=== PATIENT | female | born 1995 | race African-American/Black ===

== ENCOUNTER 2016-06-02 17:46 | Outpatient (CLI) | payer OTHER ==
[~2016-06-02] VITALS: Ht 157.5 cm; Wt 73.2 kg
[2016-06-02 17:59] VITALS: BP 121/86
[2016-06-02] MEDS ORDERED: PRENTAB9 PO (18:27)
[2016-06-02 18:37] LABS: MEAN CORPUSCULAR HEMOGLOBIN 32.3 pg (27.0-33.0); MEAN CORPUSCULAR HGB CONC 35.2 g/dl (32.0-36.5); MEAN CORPUSCULAR VOLUME 91.7 fl (80.0-96.0); RED CELL DISTRIBUTION WIDTH 12.7 % (11.5-14.5); WHITE BLOOD COUNT 6.5 K/mm3 (4.0-10.0)
[2016-06-02 18:58] LABS: ALBUMIN 3.1 GM/DL (3.2-5.2); ALBUMIN/GLOBULIN RATIO 0.89 (1.00-1.93); ALKALINE PHOSPHATASE 55 U/L (45-117); ALT/SGPT 12 U/L (12-78); ANION GAP 9 MEQ/L (8-16); AST/SGOT 12 U/L (15-37); BILIRUBIN,TOTAL 0.3 MG/DL (0.2-1.0); BLOOD UREA NITROGEN 5 MG/DL (7-18); CALCIUM LEVEL 8.5 MG/DL (8.5-10.1); CARBON DIOXIDE LEVEL 25 MEQ/L (21-32); CHLORIDE LEVEL 106 MEQ/L (98-107); GLUCOSE, FASTING 77 MG/DL (70-105); POTASSIUM SERUM 3.4 MEQ/L (3.5-5.1); SODIUM LEVEL 140 MEQ/L (136-145); TOTAL PROTEIN 6.6 GM/DL (6.4-8.2)
--- NOTE | 2016-06-02 20:20 | REPUSA ---
CLINICAL HISTORY: Sudden onset of left sided abdominal pain. TECHNIQUE: Realtime sonographic images were obtained in multiple projections. COMMENTS: uterus. FHR: 144 bpm. Placenta appears within normal limits - no abruptions. Left OV: 7.9 x 4.6 x 4.4 cm. Complex cyst in left ovary. Right OV: 6.5 X 4.3 X 6.5 cm. Right ovary appears within normal limits. Good blood flow seen. IMPRESSION: Single live uterine . Left ovarian cyst. Thank you for your kind referral of this patient. We appreciate the opportunity to participate in th is patient's care.
[2016-06-02 20:28] VITALS: BP 116/88
[2016-06-02] MEDS ORDERED: MORPHINE 2 MG/ML 1ML SYRINGE IV PRN ×3 (21:00→21:15)
[2016-06-02] MEDS: LR 1,000 ML IV SCH (21:30)
--- NOTE | 2016-06-02 23:00 | IPNPDOC ---
Text Note Date of Service The patient was seen on 06/02/16 at 22:53. NOTE Antepartum Observation H&P 20 y/o at 24+1 with sudden onset severe LLQ pain 10/10 that lasted for about an hour prior to coming to the hospital. No VB, no abnl d/c or LOF. No vomiting prior to coming to the hospital but since arrival over the last several hours has vomited bilious material X2. No dysuria or back pain or urinary complaints. No dyschezia or bowel complaints. Feeling the baby move. OB: Uncomplicated OB Hx thus far other than initial chlamydia (treated and neg LUPE ) PMH: denies PSH: left hernia repair age 12 NKDA Meds: PNV SH: [employer] ([employer]), no E/T/D, FOB is not Rads: 13DEC US shows nl anatomy and a complex septated cyst on the left measuring 6.7 x 5.2 x 5.9 cm Labs: B pos, neg AB HIV neg Rub Imm RPR NR Urine cx neg Varicella unkonwn (wrong test ordered at [facility]) HBSAG unknown (wrong test ordered at [facility]) NOB GC neg NOB CT pos with neg LUPE VSSAF, nl P and BP's and T's CTAB RRR Abd diffusely tender but not rigid or distended more than a 24 week is already distended. No palpable masses other than the gravid uterus Bedside US done upon initial eval showed an active fetus with a nl FHR and subjectively nl fluid levels but a 4 x 6 cm complex left ov cyst noted (I did not have her chart at the time of this bedside US and the pt had not mentioned the presence of this cyst). Formal inpt bedside US done: CLINICAL HISTORY: Sudden onset of left sided abdominal pain. TECHNIQUE: Realtime sonographic images were obtained in multiple projections. COMMENTS: uterus. FHR: 144 bpm. Placenta appears within normal limits - no abruptions. Left OV: 7.9 x 4.6 x 4.4 cm. Complex cyst in left ovary. Right OV: 6.5 X 4.3 X 6.5 cm. Right ovary appears within normal limits. Good blood flow seen. IMPRESSION: Single live uterine . Left ovarian cyst. Thank you for your kind referral of this patient. We appreciate the opportunity to participate in this patient's care. a/p: 24 wk uncomplicated with sudden onset and now intermittent pain in the LLQ/left abd. Now known left complex ovarian cyst, likely source of her pain is intermittent torsion. I am reluctant to go straight to the OR due to the risk of PTD, etc with surgery and being 24 wks , also her pain waxes /wanes. Hopefully, we can observe her and Tx her pain with IV Morphine prn and she will improve and we can continue her with strict return precautions and a plan for removal at time of delivery if has a or within 1-2 months of delivery if remains the same size and does not bother her further. However, if pain becomes severe/unrelenting or never improves over a reasonable hospital course, may need to have the mass removed surgically. This all d/w the pt and her treating RN. NPO until her clinical situation becomes clearer. Regardless, will need q 4-6 week US's to follow the size of the mass. Will rpt her CBC in the AM and also get a HBSAG and Varicella IGG to complete her labs. Sessions VS,Kaleigh, I+O VSKaleigh I+O Laboratory Tests 06/02/16 18:30 Calcium Level 8.5, Aspartate Amino Transf (AST/SGOT) 12 L, Alanine Aminotransferase (ALT/SGPT) 12, Alkaline Phosphatase 55, Total Bilirubin 0.3, Total Protein 6.6, Albumin 3.1 L, Red Blood Count 3.84 L, Mean Corpuscular Volume 91.7, Mean Corpuscular Hemoglobin 32.3, Mean Corpuscular Hemoglobin Concent 35.2, Red Cell Distribution Width 12.7 Vital Signs Date Time Temp Pulse Resp B/P Pulse Ox O2 Delivery O2 Flow Rate FiO2 06/02/16 21:49 97.8 79 20 116/88 Room Air SESSIONS,RYLAND Rudolph MD Jun 02, 2016 23:00
[2016-06-03 00:22] VITALS: BP 100/57
[2016-06-03 04:05] VITALS: BP 105/58
[2016-06-03 05:15] LABS: MEAN CORPUSCULAR HEMOGLOBIN 32.2 pg (27.0-33.0); MEAN CORPUSCULAR HGB CONC 35.2 g/dl (32.0-36.5); MEAN CORPUSCULAR VOLUME 91.6 fl (80.0-96.0); RED CELL DISTRIBUTION WIDTH 13.6 % (11.5-14.5); WHITE BLOOD COUNT 9.8 K/mm3 (4.0-10.0)
[2016-06-03 07:12] VITALS: BP 109/60
--- NOTE | 2016-06-03 07:15 | IPNPDOC ---
Text Note Date of Service The patient was seen on 06/03/16 at 07:09. NOTE 24+2 weeks gestation with LLQ pain, known left complex ovarian cyst States feeling somewhat better but back tender paper machine all over abd worst on lower left and needs to sit up slightly in bed to be able to sleep. No further vomiting. Has received IV morphine several times throughout the night. Vitals stable CBC done 0500 with HCT 32.4 from 35.2 (likely dilutional), PLT 134 from 135, WBC 9.8 from 6.5 CTAB RRR Abd with nontender uterine fundus Tender left side to palp but abd not rigid, no guarding. a/p: Slight improvement, not a surgical abdomen at this point but if no significant improvement may need surgical intervention this afternoon or tomorrow. Maintain NPO status. SBAR to Dr Zamora. Sessions MD MASTERS,Kaleigh, I+O VSKaleigh I+O Laboratory Tests 06/02/16 18:30 Calcium Level 8.5, Aspartate Amino Transf (AST/SGOT) 12 L, Alanine Aminotransferase (ALT/SGPT) 12, Alkaline Phosphatase 55, Total Bilirubin 0.3, Total Protein 6.6, Albumin 3.1 L, Red Blood Count 3.84 L, Mean Corpuscular Volume 91.7, Mean Corpuscular Hemoglobin 32.3, Mean Corpuscular Hemoglobin Concent 35.2, Red Cell Distribution Width 12.7 06/03/16 04:37 Red Blood Count 3.54 L, Mean Corpuscular Volume 91.6, Mean Corpuscular Hemoglobin 32.2, Mean Corpuscular Hemoglobin Concent 35.2, Red Cell Distribution Width 13.6 Vital Signs Date Time Temp Pulse Resp B/P Pulse Ox O2 Delivery O2 Flow Rate FiO2 06/03/16 05:10 97.2 18 06/03/16 04:05 81 105/58 06/02/16 21:49 Room Air I&O- Last 24 Hours up to 6 AM 06/03/16 06:00 Intake Total 650 ml Output Total 550 ml Balance 100 ml SESSIONS,RYLAND Rudolph MD Jun 03, 2016 07:15
[2016-06-03] MEDS: LR 1,000 ML IV SCH (08:15)
[2016-06-03 13:15] VITALS: BP 108/52
== END 2016-06-03 16:25 | disposition home or self-care (01) ==
LOC: M LDO 17:46
PROVIDERS: ATTEND Obstetrics & Gynecology
DX: R10.32 Left lower quadrant pain (principal); N83.202 Unspecified ovarian cyst, left side; O62.0 Primary inadequate contractions; O47.02 False labor before 37 completed weeks of gestation, second trimester; Z3A.24 24 weeks gestation of pregnancy; O34.82 Maternal care for other abnormalities of pelvic organs, second trimester; O21.9 Vomiting of pregnancy, unspecified

== ENCOUNTER 2016-09-23 20:57 | Inpatient (IN) | payer OTHER ==
[~2016-09-23 20:57] MED LIST: PRENTAB9 PO
[2016-09-23 21:05] VITALS: BP 123/80
[2016-09-24] VITALS (12 sets, daily range): BP systolic 97–116; BP diastolic 55–68
[2016-09-24] MEDS ORDERED: BUTORPHANOL 2 MG/ML INJ (J0595) IV ONE (02:15)
[2016-09-24] MEDS ORDERED: OXYTOCIN 30 UNITS IN 0.9% NaCl 500ML IV BAG (J2590) As Ordered ONE (02:20)
[2016-09-24] MEDS ORDERED: BUTORPHANOL 2 MG/ML INJ (J0595) As Ordered ONE (02:21)
[2016-09-24] MEDS ORDERED: OXYTOCIN DRIP 30 UNITS in APPROPRIATE DILUENT 1 EA IV SCH (02:26)
[2016-09-24 02:51] LABS: MEAN CORPUSCULAR HEMOGLOBIN 32.2 pg (27.0-33.0); MEAN CORPUSCULAR HGB CONC 34.8 g/dl (32.0-36.5); MEAN CORPUSCULAR VOLUME 92.5 fl (80.0-96.0); RED CELL DISTRIBUTION WIDTH 12.8 % (11.5-14.5); WHITE BLOOD COUNT 8.1 K/mm3 (4.0-10.0)
[2016-09-24] MEDS ORDERED: RHOGAM 300 MCG (1500 IU) INJ (J2790) IM SCH (03:15)
[2016-09-24] MEDS ORDERED: PROMETHAZINE 25 MG TAB PO PRN (03:15)
[2016-09-24] MEDS ORDERED: LIDOCAINE 1% MDV INJ 50 ML VIAL INFIL ONE (03:15)
[2016-09-24] MEDS ORDERED: MEASLES,MUMPS,RUBELLA VACCINE INJ (MMR-II) (90707) SC SCH (03:15)
[2016-09-24] MEDS ORDERED: ONDANSETRON 4MG/2ML VIAL (J2405) IV PRN (03:15)
[2016-09-24] MEDS ORDERED: DIBUCAINE 1% OINTMENT 30GM TOP PRN (03:15)
[2016-09-24] MEDS ORDERED: METHYLERGONOVINE MALEATE 0.2 MG/ML VIAL (J2210) IM PRN (03:15)
[2016-09-24] MEDS: PRENATAL VITAMIN TAB PO SCH (08:09)
[2016-09-24] MEDS: DOCUSATE SODIUM 100 MG CAP PO SCH ×2 (08:09→20:03)
[2016-09-24] MEDS: IBUPROFEN 800 MG TAB PO PRN ×2 (08:11→20:03)
[2016-09-25] MEDS: IBUPROFEN 800 MG TAB PO PRN ×2 (05:17→19:27)
[2016-09-25 05:51] VITALS: BP 108/59
--- NOTE | 2016-09-25 07:01 | IPNPDOC ---
Text Note Date of Service The patient was seen on 09/25/16. NOTE Mami is a 20yo [id number] doing well on PPD 1 s/p in ambulance complicated by 3mll. She is bottle feeding without issue. Lochia normal, spontaneously voiding and ambulating without difficulty. Tolerating regular diet. Denies f/c/n/v/SOB/CP/ROACH/abdominal pain. Vitals wnl, afebrile Exam: General: WDWN, NAD, resting comfortably Cardiac: S1S2 present, no murmur Lungs: CTAB without wheeze/crackles Abdomen: soft, NTTP, fundus firm u-2cm Extremities: no tenderness of calves bilaterally Assessment: Mami is a 20yo [id number] doing well on PPD 1 in ambulance complicated by 3mll. Vitals wnl, benign exam. No e/o infection, hemodynamically stable. Plan: -routine post- care -tylenol/motrin prn pain -good bowel regimen with colace -encourage ambulation -undecided on contraception -will have 6wk PP follow-up visit Dr. Megan Potter MD [place] TORSTEN VS,Kaleigh, I+O VS, [place], I+O Vital Signs Date Time Temp Pulse Resp B/P (MAP) Pulse Ox O2 Delivery O2 Flow Rate FiO2 09/25/16 05:51 98.2 87 18 108/59 (75) 09/24/16 05:42 99 Room Air I&O- Last 24 Hours up to 6 AM 09/25/16 06:00 Intake Total 480 ml Balance 480 ml MEGAN POTTER MD September 25, 2016 07:01
[2016-09-25] MEDS: PRENATAL VITAMIN TAB PO SCH (07:57)
[2016-09-25] MEDS: DOCUSATE SODIUM 100 MG CAP PO SCH ×2 (07:57→19:27)
[2016-09-25] MEDS: ACETAMINOPHEN 500 MG TAB PO PRN (17:35)
[2016-09-25 18:00] VITALS: BP 105/59
[2016-09-26] MEDS: ACETAMINOPHEN 500 MG TAB PO PRN (06:18)
[2016-09-26 06:27] VITALS: BP 113/62
--- NOTE | 2016-09-26 06:48 | DS.PDOC ---
Discharge Summary General Date of Admission September 24, 2016 at 02:00 Date of Discharge [id number] Discharge Summary PROCEDURES PERFORMED DURING STAY: spontaneous vaginal delivery ADMITTING DIAGNOSES: Labor DISCHARGE DIAGNOSES: 1. Healthy male HOSPITAL COURSE: Admitted in active labor. Underwent an uncomplicated delivery. See delivery note. DISCHARGE MEDICATIONS: Motrin, Colace, Tylenol, Lanolin Physical exam: see note from this morning LABORATORY DATA: Please see below. ACTIVITY: as tolerated. Nothing in vagina for 6 weeks. No bathing for 2 weeks , shower only. DIET: regular DISPOSITION:stable, discharge to boarding status (UV lights for baby) TIME SPENT ON DISCHARGE: Greater than 15 minutes. Sessions Vital Signs/I&Os Vital Signs Date Time Temp Pulse Resp B/P (MAP) Pulse Ox O2 Delivery O2 Flow Rate FiO2 09/26/16 06:27 98.0 77 18 113/62 (79) 09/24/16 05:42 99 Room Air Discharge Medications Scheduled Multivitamins/ ( 27-0.8 mg) 1 Tab Tab, 1 TAB PO DAILY, (Reported ) Allergies Coded Allergies: No Known Allergies (Unverified , 06/02/16) SESSIONS,RYLAND Rudolph MD September 26, 2016 06:48
--- NOTE | 2016-09-26 06:55 | IPNPDOC ---
Text Note Date of Service The patient was seen on 09/26/16. NOTE PPD2 prog note States feeling well, no complaints. No heavy VB. Pain controlled. Voiding, ambulatory. Bonding well and bottle feeding. Baby is geting UV light therapy. VSSAF CTAB RRR Ut at U-2, firm Ext no CCE a/p: Doing well, d/c to boarding status. Sessions VS,Kaleigh, I+O VSKaleigh I+O Vital Signs Date Time Temp Pulse Resp B/P (MAP) Pulse Ox O2 Delivery O2 Flow Rate FiO2 09/26/16 06:27 98.0 77 18 113/62 (79) 09/24/16 05:42 99 Room Air SESSIONS,RYLAND Rudolph MD September 26, 2016 06:55
[2016-09-26] MEDS: PRENATAL VITAMIN TAB PO SCH (08:17)
[2016-09-26] MEDS: DOCUSATE SODIUM 100 MG CAP PO SCH (08:17)
[2016-09-26] MEDS ORDERED: COLA100C3 PO (09:51)
[2016-09-26] MEDS ORDERED: ACET50TA PO (09:51)
[2016-09-26] MEDS ORDERED: IBUP-1114 PO (09:52)
--- NOTE | 2016-09-26 17:22 | IPN ---
DATE: 09/26/2016 This patient and requested circumcision of their male . After discussing the risks and benefits of circumcision, the medical and nonmedical indications, the penile block and aftercare, both expressed understanding of the same, signed and witnessed the consent form. We await the clearance by the core inserter. Copy To: Anjelica ROCHA
== END 2016-09-26 10:30 | disposition home or self-care (01) | DRG 769 ==
LOC: M LDO 20:57 → M LDI 09-24 02:00 → M OBS 09-24 05:42
PROVIDERS: ADMIT Obstetrics & Gynecology; ATTEND Obstetrics & Gynecology
PROC: 0DQR0ZZ Repair Anal Sphincter, Open Approach (ICD-10-PCS; principal; 2016-09-24)
DX: O70.20 Third degree perineal laceration during delivery, unspecified (principal); Z39.0 Encounter for care and examination of mother immediately after delivery; Z3A.40 40 weeks gestation of pregnancy; O48.0 Post-term pregnancy

== ENCOUNTER 2016-09-23 20:59 | Outpatient (CLI) | payer OTHER | END 2016-09-23 23:12 | disposition home or self-care (01) | LOC: M LDO 20:59 | PROVIDERS: ATTEND Obstetrics & Gynecology | DX: O62.0 Primary inadequate contractions (principal); Z3A.40 40 weeks gestation of pregnancy; O99.89 Other specified diseases and conditions complicating pregnancy, childbirth and the puerperium; R60.9 Edema, unspecified ==

== ENCOUNTER 2016-12-31 15:15 | Emergency (ER) | payer OTHER ==
[~2016-12-31] VITALS: Ht 157.5 cm; Wt 71.7 kg
[~2016-12-31 15:15] MED LIST changes: +ACET50TA PO; +COLA100C5 PO; +IBUP-1114 PO
[2016-12-31] MEDS ORDERED: KETOROLAC 30 MG/ML VIAL (J1885) IM ONE (17:15)
[2016-12-31 18:22] VITALS: BP 135/84
[2016-12-31] MEDS ORDERED: ULTR50TA8 PO (18:22)
--- NOTE | 2016-12-31 19:24 | REP ---
PELVIC ULTRASOUND: Real-time sonographic evaluation of the pelvis was performed utilizing transabdominal. The bladder measures 4.8 x 2.9 x 4.7 cm. The uterus measures 9.5 x 4.4 x 5.3 cm. Endometrial thickness is 8 mm. There is no endometrial fluid collection. Right ovary measuring 2.6 x 2.0 x 1.5 cm and the left ovary measuring 10.5 x 5.1 x 9.9 cm. A simple cyst of the left ovary measures 4.7 x 3.6 x 4.6 cm. A complex cyst of the left ovary measures 5.0 x 5.3 x 5.8 cm. There is no evidence of torsion with blood flow seen in each ovary with Duplex Doppler evaluation, RI right ovary is 0.49 and left ovary 0.54. No free fluid is seen. IMPRESSION: Two dominant left ovarian cysts with the largest cyst complex and measuring 5.8 cm in diameter. No torsion or free fluid. Signed by Jacobo Dixon MD 12/31/2016 08:16 P
== END 2016-12-31 18:28 | disposition home or self-care (01) ==
LOC: M ED 15:15
DX: N83.02 Follicular cyst of left ovary (principal)
CPT/HCPCS: 76856; 81001; 81025; 93976; 96372; 99283; J1885

== ENCOUNTER 2017-01-24 04:52 | Emergency (ER) | payer OTHER ==
[~2017-01-24] VITALS: Ht 157.5 cm; Wt 72.0 kg
[~2017-01-24 04:52] MED LIST changes: +ULTR50TA8 PO
--- NOTE | 2017-01-24 06:20 | REPUSA ---
HISTORY: Trauma. COMPARISON: Not provided. TECHNIQUE: Multiple thin section helically-acquired axially-displayed and helically acquired coronall y displayed computed tomographic images of the face are obtained from the mandible through the fronta l sinuses, with images obtained at soft tissue and bone window. 2D reformatted images were performed. FINDINGS: Acute displaced fractures of the nasal bones. Overlying soft tissue edema and swelling. Fracture of the nasal septum. Normal orbits. Normal, clear paranasal sinuses. Normal oral and nasal cavities. Normal infratemporal fossa and deep parapharyngeal spaces with normal muscles of mastication. Normal parotid and submandibular glands. IMPRESSION: Fractures of the nasal bones and nasal septum. Overlying soft tissue edema. Thank you for your kind referral of this patient
--- NOTE | 2017-01-24 06:20 | REPUSA ---
CLINICAL HISTORY: Neck pain. TECHNIQUE: Multiple axial images were obtained through the cervical spine. Images were also reconstru cted in coronal and sagittal planes. The study was performed without IV contrast. COMMENTS: There is no fracture or spondylolisthesis visualized. The paraspinal soft tissues are unremarkable. T here are no lytic or blastic lesions. Straightening of cervical lordosis is seen, suggesting muscular spasm. There is evidence of minimal m ultilevel disk disease, demonstrated by minimal osteophytosis and endplate sclerosis. No significant disk herniation is noted at any level. Canal and foramina remain patent. IMPRESSION: 1. No fracture or spondylolisthesis. 2. Straightening of cervical lordosis is seen, suggesting muscular spasm. 3. Minimal multilevel spondylosis. Thank you for your kind referral of this patient.
[2017-01-24] MEDS ORDERED: OXYMETAZOLINE NASAL SPRAY (AFRIN) ONE (06:45)
[2017-01-24] MEDS ORDERED: NORCO 5/325MG TABLET (BULK FOR ED) PO ONE (06:45)
[2017-01-24 06:49] VITALS: BP 119/79
== END 2017-01-24 06:50 | disposition home or self-care (01) ==
LOC: M ED 04:52
DX: S02.2XXA Fracture of nasal bones, initial encounter for closed fracture (principal); V43.62XA Car passenger injured in collision with other type car in traffic accident, initial encounter; Y92.9 Unspecified place or not applicable; Y93.9 Activity, unspecified; Y99.9 Unspecified external cause status; M47.899 Other spondylosis, site unspecified

== ENCOUNTER 2017-02-14 09:16 | Day surgery (SDC) | payer OTHER ==
[~2017-02-14] VITALS: Ht 157.5 cm; Wt 72.6 kg
[~2017-02-14 09:16] MED LIST changes: +LR 1,000 ML IV ONE
[2017-02-14 10:28] LABS: CONTROL LINE UCG INT CTR LINE PRESENT
[2017-02-14] MEDS ORDERED: fentaNYL 100 MCG/2 ML INJECTION (J3010) As Ordered ONE ×2 (11:29→12:23)
[2017-02-14] MEDS ORDERED: MIDAZOLAM INJ 2 MG/2 ML VIAL (J2250) As Ordered ONE (11:29)
[2017-02-14] MEDS ORDERED: OXYMETAZOLINE NASAL SPRAY (AFRIN) As Ordered ONE (11:49)
[2017-02-14] MEDS ORDERED: LIDOCAINE W/EPINEPHRINE 1% 20ML VIAL As Ordered ONE (11:49)
[2017-02-14] MEDS ORDERED: METHYLENE BLUE 0.5% (5MG/ML) 10 ML AMP (PROVAYBLUE)(Q9968 PER 1MG) As Ordered ONE (11:49)
[2017-02-14] MEDS ORDERED: ROCURONIUM BROMIDE 50 MG/5 ML VIAL/SYRINGE As Ordered ONE (12:37)
[2017-02-14] MEDS ORDERED: PHENYLephrine HCL 500 MCG/5 ML (100MCG/ML) SYRINGE (J2370) As Ordered ONE (12:37)
[2017-02-14] MEDS ORDERED: dexameTHASONE 4 MG/ML 1ML VIAL (J1100) As Ordered ONE (12:37)
[2017-02-14] MEDS ORDERED: LIDOCAINE 2% INJ 100 MG/5 ML SDV (FOR ANES.) As Ordered ONE (12:37)
[2017-02-14] MEDS ORDERED: PROPOFOL 200 MG/20 ML VIAL As Ordered ONE (12:37)
[2017-02-14] MEDS ORDERED: ONDANSETRON 4MG/2ML VIAL (J2405) As Ordered ONE (12:38)
[2017-02-14] MEDS ORDERED: SUGAMMADEX SODIUM 500 MG/5 ML VIAL (BRIDION) As Ordered ONE (12:55)
[2017-02-14] MEDS ORDERED: ONDANSETRON 4MG/2ML VIAL (J2405) IV PRN (13:30)
[2017-02-14] MEDS ORDERED: LR 1,000 ML IV SCH (13:30)
[2017-02-14] MEDS ORDERED: fentaNYL 100 MCG/2 ML INJECTION (J3010) IV PRN (13:30)
[2017-02-14] MEDS ORDERED: PERCOCET 5MG/325MG TAB As Ordered ONE (13:40)
[2017-02-14] MEDS: PERCOCET 5MG/325MG TAB PO PRN ×2 (13:40→14:16)
--- NOTE | 2017-02-14 13:43 | ROOPDOC ---
[facility] Report Of Operation Report of Operation DATE OF PROCEDURE: 02/14/17 PREPROCEDURE DIAGNOSES: [Nasal septal fracture secondary to trauma]. POSTPROCEDURE DIAGNOSES: [Same.]. PROCEDURE: [Open reduction of nasal septal fracture with open component of the septum and closed reduction of the nasal bones.]. SURGEON: [Ryan Rosa Jr.] MANAGER PROVIDER RELATIONS: [None], ANESTHESIA: [Gen. via endotracheal tube.]. ESTIMATED BLOOD LOSS: Approximately [1] mL. COMPLICATIONS: [None]. REMARKS: [Patient was found to have obstruction of the left nasal cavity due to posterior septal fracture and also flattening of the nasal dorsum due to the nasal trauma to the nasal bones.]. PROCEDURE NOTE: [With the patient in the supine position after being induced, intubated and prepped and draped by the hotel services supervisor,the patient had the nasal cavity decongested with topical Afrin. Next, attention was drawn to injecting a total of 4 mL of 1% lidocaine 1: 100,000 epinephrine in the subperichondrial planes on both sides of the nasal septum. A left hemitransfixion incision was made with a 15 blade and the left mucoperichondria was elevated with the Jenny knife and elevator. The bony cartilaginous septum was identified inferiorly as well as posteriorly. The cartilage was deflected laterally to the right. Part of the fractured bone posteriorly was removed with the Libby Robledo and the Evaporcool [place] as necessary. There also were some fragments of broken cartilage that were also removed with the [place]. With the septum adequately straighten, two septal columellar stitches were placed with 3-0 chromic after the mucoperichondrial was placed back in its normal position. Next , the butter knife as well as the RUSBASEh nasal reduction forceps were used to elevate the nasal bones from their flattening position to a less flattened position. The nasal bones were mobile and then placed back into more anatomical position. At this point, [place] septal splints were sutured trans-nasally with 3- [address], followed by trimmed nasapore packing to support the nasal bones. Next, [place] splint was applied in the usual fashion. Patient was taken back to the recovery area in satisfactory condition.]. DESCRIPTION OF PROCEDURE: [Removal of bony and cartilaginous tissue sent to pathology from the nasal septum. Closed reduction of nasal bones with open reduction of the nasal septum.]. RYAN ROSA MD Feb 14, 2017 13:43
[2017-02-14 14:35] VITALS: BP 117/67
== END 2017-02-14 14:55 | disposition home or self-care (01) ==
LOC: M SDC 09:16
PROVIDERS: ATTEND Otolaryngology
DX: S02.2XXA Fracture of nasal bones, initial encounter for closed fracture (principal); J34.2 Deviated nasal septum; V49.59XA Passenger injured in collision with other motor vehicles in traffic accident, initial encounter; Y99.9 Unspecified external cause status; Y93.9 Activity, unspecified; Y92.410 Unspecified street and highway as the place of occurrence of the external cause
CPT/HCPCS: 21230; 21336; 84703; 88300; J1100; J2250; J2370; J2405; J3010; Q9968

== ENCOUNTER 2017-03-19 10:54 | Emergency (ER) | payer OTHER ==
[~2017-03-19] VITALS: Ht 157.5 cm; Wt 71.2 kg
[~2017-03-19 10:54] MED LIST changes: -LR 1,000 ML IV ONE
[2017-03-19 10:56] VITALS: BP 113/69
[2017-03-19] MEDS ORDERED: NAPROXEN 250 MG TAB PO ONE (11:30)
[2017-03-19 11:57] LABS: MEAN CORPUSCULAR HEMOGLOBIN 30.2 pg (27.0-33.0); MEAN CORPUSCULAR HGB CONC 33.5 g/dl (32.0-36.5); MEAN CORPUSCULAR VOLUME 90.2 fl (80.0-96.0); PLATELET COUNT, AUTOMATED 170 10^3/uL (150-450); RED CELL DISTRIBUTION WIDTH 12.4 % (11.5-14.5); WHITE BLOOD COUNT 4.4 10^3/uL (4.0-10.0)
[2017-03-19] MEDS ORDERED: BACT800T5 PO (12:15)
[2017-03-19] MEDS ORDERED: NAPR500T PO (12:15)
== END 2017-03-19 12:44 | disposition home or self-care (01) ==
LOC: M ED 10:54
DX: N30.00 Acute cystitis without hematuria (principal); Z90.721 Acquired absence of ovaries, unilateral

== ENCOUNTER 2017-06-11 12:40 | Emergency (ER) | payer OTHER ==
[2017-06-11] MEDS: ONDANSETRON 4 MG ORAL DISINTEGRATING TAB (S0181) PO (14:33)
== END 2017-06-11 15:30 | disposition home or self-care (01) ==
LOC: M ED 12:40
DX: J02.9 Acute pharyngitis, unspecified (principal); R05 Cough; R68.83 Chills (without fever)
CPT/HCPCS: 87804

== ENCOUNTER 2017-07-17 08:56 | Emergency (ER) | payer OTHER ==
[2017-07-17] MEDS: IBUPROFEN 600 MG TAB PO (09:24)
== END 2017-07-17 09:28 | disposition home or self-care (01) ==
LOC: M ED 08:56
DX: J06.9 Acute upper respiratory infection, unspecified (principal); B34.9 Viral infection, unspecified
CPT/HCPCS: 87880